=== PATIENT | male | born 1950 | race Caucasian/White ===

== ENCOUNTER 2019-02-11 09:14 | Day surgery (SDC) | payer MEDICARE, OTHER ==
[~2019-02-11] VITALS: Ht 172.7 cm; Wt 83.1 kg
[~2019-02-11 09:14] MED LIST: AMLO5 PO; ASPI325 PO; B Complex #11 EACH PO; B-121000 MC2 PO; BLOOD PRESSURE MED; CETI10 PO; CHOL10002 PO; Desyrel50 MG PO; HYDCHL25 PO; IBUP800 PO; KRILL OIL500 MG PO; LEVSOD150 PO; LEVSOD175 PO; LOSA50 PO; NITR.4SL SL; PREG50 PO; PREG75 PO; Prilosec Otc20 MG PO; SULTRIDS PO; TRAM50 PO; VERA240ER PO; VITAMIN B122500 MCG PO
== END 2019-02-11 11:30 | disposition home or self-care (01) ==
LOC: ORSCSDS 09:14
PROVIDERS: Internal Medicine Gastroenterology
PROC: 0DB88ZX Excision of Small Intestine, Via Natural or Artificial Opening Endoscopic, Diagnostic (ICD-10-PCS; principal; 2019-02-11 10:30)
PROC: 0DB58ZX Excision of Esophagus, Via Natural or Artificial Opening Endoscopic, Diagnostic (ICD-10-PCS; principal; 2019-02-11 10:30)
PROC: 0DB98ZX Excision of Duodenum, Via Natural or Artificial Opening Endoscopic, Diagnostic (ICD-10-PCS; principal; 2019-02-11 10:30)
PROC: 0D758ZZ Dilation of Esophagus, Via Natural or Artificial Opening Endoscopic (ICD-10-PCS; principal; 2019-02-11 10:30)
DX: R13.14 Dysphagia, pharyngoesophageal phase (principal); K22.70 Barrett's esophagus without dysplasia; K22.2 Esophageal obstruction; Z87.891 Personal history of nicotine dependence; I10 Essential (primary) hypertension; K21.9 Gastro-esophageal reflux disease without esophagitis; Z79.82 Long term (current) use of aspirin; Z79.899 Other long term (current) drug therapy
CPT/HCPCS: 88305; J2704; J7120

== ENCOUNTER 2020-05-01 19:11 | Observation (INO) | payer MEDICARE, OTHER ==
[~2020-05-01] VITALS: Ht 172.7 cm; Wt 81.8 kg
[2020-05-01 20:02] LABS: BASOPHILS ABSOLUTE AUTO 0.06 K/mm3 (0.00-0.23); BASOPHILS PERCENT AUTO 1 % (0-2); EOSINOPHILS ABSOLUTE AUTO 0.16 K/mm3 (0.00-0.68); EOSINOPHILS PERCENT AUTO 2 % (0-6); Hematocrit 46.1 % (37.0-53.0); Hemoglobin 14.8 g/dL (13.5-17.5); IMMATURE GRAN ABSOLUTE AUTO 0.04 K/mm3 (0.00-0.10); IMMATURE GRAN PERCENT AUTO 1 % (0-1); LYMPHOCYTES ABSOLUTE AUTO 1.91 K/mm3 (0.84-5.20); LYMPHOCYTES PERCENT AUTO 26 % (21-46); MONOCYTES ABSOLUTE AUTO 0.84 K/mm3 (0.16-1.47); MONOCYTES PERCENT AUTO 11 % (4-13); Mean Corpuscular HGB 28.9 pg (26.0-34.0); Mean Corpuscular HGB Conc 32.1 g/dL (31.5-36.5); Mean Corpuscular Volume 90 fL (80-100); Mean Platelet Volume 10.2 fL (9.1-12.4); NEUTROPHILS ABSOLUTE AUTO 4.46 K/mm3 (1.96-9.15); NEUTROPHILS PERCENT AUTO 60 % (41-73); Platelet Count 280 K/mm3 (150-400); RDW Standard Deviation 42.5 fL (35.1-46.3); Red Blood Cell Count 5.12 M/mm3 (4.30-5.90); White Blood Cell Count 7.47 K/mm3 (4.00-11.30)
[2020-05-01 20:15] LABS: Alanine Aminotransfer (ALT/SGP 28 U/L (12-78); Albumin, Blood 3.9 g/dL (3.4-5.0); Albumin/Globulin Ratio 0.9 (0.8-1.8); Alk Phos 98 U/L (50-136); Anion Gap 3 mmol/L (6-16); Aspartate Aminotrans (AST/SGOT 14 U/L (12-37); Bilirubin, Total 0.3 mg/dL (0.1-1.0); Blood Urea Nitrogen 24 mg/dL (8-24); Bun/Creatinine Ratio 24.8 (12.0-20.0); CO2, Blood 28 mmol/L (21-32); Calcium, Blood 10.6 mg/dL (8.5-10.1); Chloride, Blood 107 mmol/L (98-108); Creatinine, Blood 0.97 mg/dL (0.60-1.20); Globulin, Blood 4.2 g/dL (2.2-4.0); Glomerular Filtration Rate >60 (60-); Glucose, Blood 111 mg/dL (70-99); Potassium, Blood 4.1 mmol/L (3.5-5.5); Sodium, Blood 138 mmol/L (136-145); Total Protein, Blood 8.1 g/dL (6.4-8.2); Troponin I <0.015 ng/mL (0.000-0.040)
[2020-05-01] MEDS ORDERED: ASPI325 PO (21:58)
[2020-05-01] MEDS ORDERED: LOSA50 PO (21:59)
[2020-05-01] MEDS ORDERED: EUTHYROX175 MCG PO (21:59)
[2020-05-01] MEDS ORDERED: HYDCHL25 PO (22:00)
[2020-05-01] MEDS ORDERED: VERA80 PO (22:00)
[2020-05-01] MEDS ORDERED: OMEP20ER PO (22:01)
[2020-05-01] MEDS ORDERED: IBUP800 PO (22:01)
[2020-05-01] MEDS ORDERED: TRAZ50 PO (22:02)
[2020-05-01] MEDS ORDERED: ACET500 PO (22:02)
[2020-05-01] MEDS ORDERED: TRAM50 PO (22:02)
[2020-05-01] MEDS ORDERED: NITR.4SL SL (22:03)
[2020-05-01] MEDS ORDERED: KRILL OIL500 MG PO (22:04)
[2020-05-01] MEDS ORDERED: VITAMIN D5000 UNIT PO (22:04)
[2020-05-01] MEDS ORDERED: CETI5 (22:04)
[2020-05-01] MEDS ORDERED: Vitamin B Comple1 EA PO (22:05)
[2020-05-01] MEDS ORDERED: VITAMIN B125000 MC1 PO (22:05)
[2020-05-01] MEDS ORDERED: FLUT1DIS2 INH (22:07)
[2020-05-02] MEDS ORDERED: PREG75 PO (00:17)
--- NOTE | 2020-05-02 01:08 | NUR ---
NEW ADMIT ARRIVED @2330 VIA GURNEY TO RM 301, IND TRANSFERED SELF TO BED. PT REPORTED HE HAD 6/10 MID STERNUM CHEST PAIN @2300 IN ER & TOOK 1 OF HIS HOME NITRO THEN CHEST PAIN DECREASED TO 3/10. ASKED PT TO INFORM STAFF IF HE FELT ANY FURTHER CHEST PAIN SO WE CAN MONITOR & GIVE MEDS THAT HAVE BEEN ORDERED. WCTM.
[2020-05-02 05:01] LABS: BASOPHILS ABSOLUTE AUTO 0.08 K/mm3 (0.00-0.23); BASOPHILS PERCENT AUTO 1 % (0-2); EOSINOPHILS ABSOLUTE AUTO 0.16 K/mm3 (0.00-0.68); EOSINOPHILS PERCENT AUTO 2 % (0-6); Hematocrit 42.4 % (37.0-53.0); Hemoglobin 13.5 g/dL (13.5-17.5); IMMATURE GRAN ABSOLUTE AUTO 0.05 K/mm3 (0.00-0.10); IMMATURE GRAN PERCENT AUTO 1 % (0-1); LYMPHOCYTES ABSOLUTE AUTO 1.94 K/mm3 (0.84-5.20); LYMPHOCYTES PERCENT AUTO 22 % (21-46); MONOCYTES ABSOLUTE AUTO 0.97 K/mm3 (0.16-1.47); MONOCYTES PERCENT AUTO 11 % (4-13); Mean Corpuscular HGB 28.5 pg (26.0-34.0); Mean Corpuscular HGB Conc 31.8 g/dL (31.5-36.5); Mean Corpuscular Volume 90 fL (80-100); Mean Platelet Volume 10.4 fL (9.1-12.4); NEUTROPHILS ABSOLUTE AUTO 5.59 K/mm3 (1.96-9.15); NEUTROPHILS PERCENT AUTO 64 % (41-73); Platelet Count 239 K/mm3 (150-400); RDW Coefficient Variation 12.7 % (11.7-14.2); Red Blood Cell Count 4.74 M/mm3 (4.30-5.90); White Blood Cell Count 8.79 K/mm3 (4.00-11.30)
[2020-05-02 05:22] LABS: CPK Creatine Kinase 50 U/L (39-308); Troponin I <0.015 ng/mL (0.000-0.040)
--- NOTE | 2020-05-02 06:41 | NUR ---
SHIFT SUMMARY AOX4. VSS. TELE NSR @86. DENIES N/V, DYSPNEA, DIZZINESS, ROCHE. REPORTED 2-3/10 MID STERNUM CHEST PAIN ONCE HE CAME TO FLOOR LAST NIGHT, POST TAKING 1 TAB OF HIS OWN NITRO. HAS DENIED ANY FURTHER CP SINCE. NS RUNNING @75ML/HR. CALL LIGHT IN REACH.
[2020-05-02 12:31] LABS: CPK Creatine Kinase 41 U/L (39-308); Troponin I <0.015 ng/mL (0.000-0.040)
--- NOTE | 2020-05-02 17:25 | NUR ---
SUMMARY PT IS A/O X4, PLEASANT/COOPERATIVE AFFECT. UP INDEPENDANTLY. HE STATE MINIMAL CHEST PAIN/PRESSURE TODAY, 10/05. HE STATE HX FIBROMYALGIA PAIN, HAS REPORTED DISCOMFORT R/T TODAY, 02/02, HAVE GIVEN TRAMADOL FOR RELIEF, DR FIELDS ADD TYLENOL THIS AFTERNOON/PT REQUEST. TELE REPORT NSR 80'S TODAY, VSS. DR FIELDS ORDER CARDIAC STRESS TEST HOWEVER NUC MED UNABLE TO START TODAY, PT WILL BEGIN IN AM, NPO 4HRS PRIOR TO TEST. PT & INFORMED, VERBALIZE UNDERSTANDING. TROP HAS BEEN WNL.
--- NOTE | 2020-05-03 05:20 | NUR ---
SHIFT SUMMARY NO ACUTE CHANGES THIS SHIFT. AOX4. VSS. TELE NSR c PVCS & 1ST DEGREE HB @78. PT DENIES ANY CP T/O NIGHT. ALSO DENIES N/V, DYSPNEA. REPORTS HE ALWAYS HAS 4/10 PAIN ALL OVER BODY FROM FIBROMYALGIA, DENIES NEED FOR MEDICATION. PT HAS BEEN NPO EXCEPT SIPS OF WATER c AM MEDS FOR PLANNED STRESS TEST. CALL LIGHT IN REACH. TM.
--- NOTE | 2020-05-03 17:55 | NUR ---
SUMMARY PT WAS ABLE TO HAVE BF THIS AM, NPO AFTER FOR 1ST PORTION STRESS TEST. NUC MED UP FOR INJECTION APPROX 1330, PT DOWN FOR RADIOLOGY 1430. HE WILL HAVE 2ND PORTION STRESS TEST TOMORROW APPROX 1200, HE MAY HAVE BF IN AM THEN NPO X WATER. HE IS A/O X4, PLEASANT/COOPERATIVE. HE HAS HX FIBOMYALGIA/JOINT PAIN, GIVEN HIS ROUTINE HOME MEDS TRAMADOL w 1000G TYLENOL X2 TODAY FOR RELIEF/CONTROL. HX ABD/ESOPHAGEAL SPASMS, PT STATE MINIMAL DISCOMFORT R/T, SCHEDULED PRILOSEC CONTINUES. STATE NO CHEST PAIN T/O DAY. VSS.
--- NOTE | 2020-05-04 04:02 | NUR ---
SHIFT SUMMARY ASSUMED CARE OF PT AT 1900. PT IS A/OX4, DENIES N/T IN EXTREMITES. HEART SOUNDS REGULAR, DENIES CP, TELE SHOWS SINUS W// FIRST DEGREE BLOCK @ 75. LUNG SOUNDS CLEAR, DENIES SOB. PT IS INDEPENDENT IN ROOM. PT HAS AN UNDERSTANDING FROM HIS DOCTOR THAT HE IS TO BE NPO AFTER BREAKFAST FOR HIS STRESS TEST IN THE MORNING. NO ACUTE EVENTS DURING THE NIGHT. PT SLEPT ALL NIGHT. CALL LIGHT IN REACH, BED IN LOWEST POSTION.
[2020-05-04] MEDS ORDERED: ZYRTEC10 M1 PO (19:14)
--- NOTE | 2020-05-04 19:41 | NUR ---
DISCHARGE INSTRUCTIONS COMPLETED AND DISCUSSED WITH PT EXPRESSING UNDERSTANDING. NO NEW SCRIPTS. TO [facility] VIA W/C WITH IN ATTENDANCE.
== END 2020-05-04 19:49 | disposition home or self-care (01) ==
LOC: ER 19:11 → MEDS 19:12
PROVIDERS: Emergency Medicine; Physician Assistant; ADMIT Internal Medicine
DX: R07.89 Other chest pain (principal); I10 Essential (primary) hypertension; K21.9 Gastro-esophageal reflux disease without esophagitis; K22.70 Barrett's esophagus without dysplasia; E78.5 Hyperlipidemia, unspecified; E03.9 Hypothyroidism, unspecified; J44.9 Chronic obstructive pulmonary disease, unspecified; Z87.891 Personal history of nicotine dependence; F10.21 Alcohol dependence, in remission; Z98.890 Other specified postprocedural states; G89.4 Chronic pain syndrome; Z86.79 Personal history of other diseases of the circulatory system; I44.0 Atrioventricular block, first degree; Z79.899 Other long term (current) drug therapy; Z79.82 Long term (current) use of aspirin; Z88.5 Allergy status to narcotic agent; Z88.1 Allergy status to other antibiotic agents; Z88.8 Allergy status to other drugs, medicaments and biological substances
CPT/HCPCS: 36415; 71046; 78452; 80053; 82550; 83690; 84484; 85025; 93005; 93010; 93017; 94640; 94760; 96361; 96372; 96374; 99285-25; A9270-GY; A9500; G0378; J0360; J0706; J1650; J2785; J7030

== ENCOUNTER 2020-05-24 09:30 | Day surgery (SDC) | payer MEDICARE, OTHER ==
[~2020-05-24] VITALS: Ht 170.2 cm; Wt 83.6 kg
[~2020-05-24 09:30] MED LIST changes: +ACET500 PO; +Aspir 8181 MG PO; +CETI5; +EUTHYROX175 MCG PO; +FLUT1DIS2 INH; +OMEP20ER PO; +TRAZ50 PO; +VERA80 PO; +VITAMIN B125000 MC1 PO; +VITAMIN D5000 UNIT PO; +Vitamin B Comple1 EA PO; +ZYRTEC10 M1 PO
[2020-05-24] MEDS ORDERED: TRAZ50 PO (10:05)
[2020-05-24] MEDS ORDERED: UBID10 PO (10:07)
[2020-05-24] MEDS ORDERED: CLOP75 PO (10:47)
--- NOTE | 2020-05-24 14:40 | NUR ---
1335 PATIENT RETURNS FROM THE [facility] WITH RIGHT RADIAL TR BAND IN PLACE AT 1315. PATIENT SITTING UP IN A RECLINER AND MONITOR IN PLACE. CALL LIGHT IN REACH. VVS. NO PAIN NOTED. NO BLEEDING NOTED. AT THE BEDSIDE.
--- NOTE | 2020-05-24 15:14 | NUR ---
1515 BEGAN RELEASING AIR FROM THE TR BAND. NO BLEEDING NOTED.
--- NOTE | 2020-05-24 16:11 | NUR ---
1610 TR BAND FLAT SINCE 152, NO BLEEDING NOTED. TR BAND REMOVED AND SITE CLEANED. CLOTH DOT APPLIED. WHITE BORAD REAPPLIED. PATIENT UP TO THE RESTROOM AND THEN DRESSED SELF. PIV REMOVED AND PRESSURE DRESSING APPLIED. REVIEWED ALL DISCHARGE INSTRUCTIONS. ALL QUESTIONS ANSWERED.
--- NOTE | 2020-05-24 16:23 | NUR ---
1625 PATIENT DISCHARGED VIA WHEEL CHAIR TO DRIVING. WILL RETURN IN TWO WEEKS FOR INTERVENTIONAL PROCEDURE.
== END 2020-05-24 16:15 | disposition home or self-care (01) ==
LOC: MHTC 09:30
PROC: B201YZZ Plain Radiography of Multiple Coronary Arteries using Other Contrast (ICD-10-PCS; principal; 2020-05-24)
PROC: 4A023N7 Measurement of Cardiac Sampling and Pressure, Left Heart, Percutaneous Approach (ICD-10-PCS; principal; 2020-05-24)
DX: I25.10 Atherosclerotic heart disease of native coronary artery without angina pectoris (principal); I10 Essential (primary) hypertension; E78.5 Hyperlipidemia, unspecified; Z88.5 Allergy status to narcotic agent; Z88.1 Allergy status to other antibiotic agents; Z88.8 Allergy status to other drugs, medicaments and biological substances; Z87.891 Personal history of nicotine dependence; Z79.82 Long term (current) use of aspirin; Z79.899 Other long term (current) drug therapy
CPT/HCPCS: 76937; 93458; 99152; 99153; A9270-GY; C1769; C1894; J1644; J2250; J3010; J7030; J7050; Q9967

== ENCOUNTER 2020-06-06 07:31 | Day surgery (SDC) | payer MEDICARE, OTHER ==
[~2020-06-06] VITALS: Ht 172.7 cm; Wt 83.5 kg
[~2020-06-06 07:31] MED LIST changes: +CLOP75 PO; +UBID10 PO
[2020-06-06] MEDS ORDERED: Aspir 8181 MG PO (07:56)
--- NOTE | 2020-06-06 15:03 | NUR ---
SHEATH BEING PULLED PER [employer].
--- NOTE | 2020-06-06 17:23 | NUR ---
PT WAS ADMITTED TO ICU AT 1540 WITH A/O. R GROIN SITE SL BUFFY BUT NO HARD HEMATOMA. MOD BROAD DIRECT PRESSURE HELD FOR 15-20 MINUTES AND SITE IIMPORVED. SL TISSUE BUFFYNESS SLOWLY RETURNED W/O ANY HEMTOMA HARDNESS NOTED. PT COACHED RE CARE OF SITE , LEG MOVEMENT, RAISING OF THE HEAD. PT ABLE TO ADJUST SELF IN BED AND IS COOPERATIVE WITH R GROIN CARE. PT DISTAL PULSES AND DISTAL SATS NORMAL. VSS NOTED WITH BP SLOWLY RAISING SENCE ADMIT TO ICU. IV IS SL IN L AC SITE.
--- NOTE | 2020-06-06 18:49 | NUR ---
PULSES AND R GROIN SITE REMAIN STABLE. PT A/O. VISITING.
--- NOTE | 2020-06-06 19:15 | NUR ---
ASSUMED CARE OF PT, BEDSIDE REPORT RECEIVED. PT IS RESTING QUIETLY SUPINE IN BED WITH SPOUSE AT BEDSIDE. 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 PT VERBALIZES UNDERSTANDING OF ACTIVITY RESTRICTIONS AT THIS TIME WELL PLAN TO ALLOW INCREASED MOVEMENT AT 2200. RIGHT GROIN SITE IS REVIEWED WITH OFFGOING RN, SITE SOFT, NO VISIBLE BLEEDING/BRUISING, DRESSING IS CDI AT THIS TIME, SYMPTOMS/SIGNS OF BLEEDING FROM ACCESS SITE ARE REVIEWED WITH PT AND SPOUSE AND UNDERSTANDING IS VERBALIZED. HRR, SINUS RHYTHM IS NOTED ON MONITOR, RATE 70S AT THIS TIME, PRESSURES MAINTAINING 140-150S SYSTOLIC AT THIS TIME, PULSES ARE FULL, SKIN PWD, NO EDEMA IS NOTED. LUNGS ARE CLEAR THROUGHOUT, PT ADMITS TO SOME SHORTNESS OF BREATH ONGOING THROUGHOUT DAY TODAY BUT DENIES NEED FOR INTERVENTION AT THIS TIME, LUNGS ARE CLEAR THROUGHOUT AND SATS ARE MAINTAINING ON ROOM AIR, PT IS SPEAKING IN FULL SENTENCES, LAUGHING AND JOKING WITH STAFF AT BEDSIDE. ACTIVE BOWEL TONES ARE NOTED, ABD SOFT, NONTENDER TO PALP. PT VOIDS CLEAR YELLOW URINE WITHOUT DIFFICULTY USING URINAL. IV ACCESS IS NOTED TO LEFT FOREARM, DISCUSSED PROTOCOL FOR 2ND IV ACCESS SITE WELL REASON FOR SECOND IV ACCESS. PT DECLINES TO HAVE 2ND IV AT THIS TIME.
[2020-06-07 03:24] LABS: BASOPHILS ABSOLUTE AUTO 0.05 K/mm3 (0.00-0.23); BASOPHILS PERCENT AUTO 1 % (0-2); EOSINOPHILS ABSOLUTE AUTO 0.17 K/mm3 (0.00-0.68); EOSINOPHILS PERCENT AUTO 2 % (0-6); Hematocrit 37.3 % (37.0-53.0); IMMATURE GRAN ABSOLUTE AUTO 0.04 K/mm3 (0.00-0.10); IMMATURE GRAN PERCENT AUTO 1 % (0-1); LYMPHOCYTES ABSOLUTE AUTO 1.32 K/mm3 (0.84-5.20); LYMPHOCYTES PERCENT AUTO 16 % (21-46); MONOCYTES ABSOLUTE AUTO 1.01 K/mm3 (0.16-1.47); MONOCYTES PERCENT AUTO 12 % (4-13); Mean Corpuscular HGB Conc 32.2 g/dL (31.5-36.5); Mean Corpuscular Volume 90 fL (80-100); Mean Platelet Volume 10.4 fL (9.1-12.4); NEUTROPHILS PERCENT AUTO 69 % (41-73); Platelet Count 204 K/mm3 (150-400); RDW Coefficient Variation 13.1 % (11.7-14.2); RDW Standard Deviation 42.8 fL (35.1-46.3); Red Blood Cell Count 4.14 M/mm3 (4.30-5.90); White Blood Cell Count 8.39 K/mm3 (4.00-11.30)
[2020-06-07 03:46] LABS: Anion Gap 6 mmol/L (6-16); Blood Urea Nitrogen 26 mg/dL (8-24); Bun/Creatinine Ratio 23.4 (12.0-20.0); CO2, Blood 26 mmol/L (21-32); Calcium, Blood 9.6 mg/dL (8.5-10.1); Chloride, Blood 109 mmol/L (98-108); Creatinine, Blood 1.11 mg/dL (0.60-1.20); Glomerular Filtration Rate >60 (60-); Glucose, Blood 110 mg/dL (70-99); Potassium, Blood 4.2 mmol/L (3.5-5.5); Sodium, Blood 141 mmol/L (136-145)
--- NOTE | 2020-06-07 07:50 | NUR ---
PT RESTS QUIETLY THROUGHOUT SHIFT, IS NOTED TO BE FREQUENTLY AWAKE. HE DOES COMPLAIN OF PAIN FROM L-4 UP TO THORACIC SPINE WHICH HE STATES IS HIS BASELINE AND DOES NOT EVER GET BELOW 4/10 AT HOME. DENIES CP/PRESSURE THROUGHOUT SHIFT, DENIES NAUSEA, DOES STATE THAT HE HAS A SLEEP DISORDER AND IS FREQUENTLY AWAKE AT BASELINE. RIGHT GROIN SITE REMAINS STABLE THROUGHOUT SHIFT, SINUS RHYTHM CONTINUES, PT IS NOTED BRADYCARDIC TO THE 50S WITH PERIODS OF SLEEP AT WHICH TIME HIS PRESSURES ARE NOTED TO BE NEAR 100 SYSTOLIC BUT IMPROVE TO 110S WITH WAKEFULNESS. HE HAS GOOD URINE OUTPUT WELL GOOD PO FLUID INTAKE. ASSESSMENT REMAINS UNCHANGED THROUGHOUT NOC.
[2020-06-07] MEDS ORDERED: PANT20 PO (09:11)
--- NOTE | 2020-06-07 10:56 | NUR ---
LATE AM ENTRY... PT WAS VERY A/O WITH A GOOD AWARENESS OF MEDICAL STATUS AND NEEDED CARE FOR F/U AT HOME. PT DENEIS PAIN, SOB, CHEST PAIN, OR R GROIN STATUS CHANGES. R GROIN IS STABLE AND NO HEMATOMA NOTED, WITH GOOD DISTAL PULSES. PT WAS UP TO WALK W/O CHANGES IN R GROIN STATUS, NO SOB, CP. PT IN TO SEE PT AND IV L AC WAS D/C AND CATH INTACT. PT TO [place] ENTRANCE AT 0940 PER W/C AND PT IS ASYMTOMATIC OF ANY DISTRESS. PT DISCHARGE PER JENNIFER BRODY.
== END 2020-06-07 09:30 | disposition home or self-care (01) ==
LOC: MHTC 07:31 → ICUW 15:30 → MHTC 06-07 09:30
PROVIDERS: Internal Medicine Interventional Cardiology
PROC: B201YZZ Plain Radiography of Multiple Coronary Arteries using Other Contrast (ICD-10-PCS; principal; 2020-06-06)
PROC: 4A023N7 Measurement of Cardiac Sampling and Pressure, Left Heart, Percutaneous Approach (ICD-10-PCS; principal; 2020-06-06)
DX: I25.110 Atherosclerotic heart disease of native coronary artery with unstable angina pectoris (principal); E78.00 Pure hypercholesterolemia, unspecified; E78.5 Hyperlipidemia, unspecified; I12.9 Hypertensive chronic kidney disease with stage 1 through stage 4 chronic kidney disease, or unspecified chronic kidney disease; E11.22 Type 2 diabetes mellitus with diabetic chronic kidney disease; N18.9 Chronic kidney disease, unspecified; J44.9 Chronic obstructive pulmonary disease, unspecified; Z79.82 Long term (current) use of aspirin; Z88.5 Allergy status to narcotic agent; Z87.891 Personal history of nicotine dependence; Z88.1 Allergy status to other antibiotic agents; Z88.8 Allergy status to other drugs, medicaments and biological substances; Z79.01 Long term (current) use of anticoagulants; Z79.899 Other long term (current) drug therapy; Z79.02 Long term (current) use of antithrombotics/antiplatelets
CPT/HCPCS: 36415; 76937; 80048; 85025; 85347; 92924; 92978; 93005; 93010; 93454; 94640; 99152; 99153; A9270; A9270-GY; C1724; C1725; C1753; C1769; C1874; C1887; C1894; C9113; C9600; C9602; G0278; J1644; J2250; J3010; J7030; J7040; Q9967

== ENCOUNTER 2020-11-17 06:04 | Day surgery (SDC) | payer MEDICARE, OTHER ==
[~2020-11-17] VITALS: Ht 172.7 cm; Wt 79.0 kg
[~2020-11-17 06:04] MED LIST changes: +FLUT1DIS2; +GLUCHON PO; +Isosorbide Mono30 MG PO; +LIVALO2 MG PO; +METO50ER PO; +PANT20 PO; +TRI MIX 150 MG IC
[2020-11-17] MEDS ORDERED: ATOR40TA PO (07:25)
--- NOTE | 2020-11-17 10:10 | NUR ---
PT TO RECOVERY ROOM POST PROCEDURE. PT AWAKE AND CONVERSING APPROPRIATELY; DENIES PAIN POST PROCEDURE. MONITOR SB/SR 50-60'S, B/P 134/62,, AFEBRILE, SPO2 91-95% RA. L GROIN SITE NO SWELLING/HEMATOMA, TEGADERM DRSG INTACT; ANGIO SEAL DEPLOYED, 2+ PULSES BLE. PT TAKING BREAKFAST AND SIPS OF FLUID WITHOUT ISSUE.
--- NOTE | 2020-11-17 12:15 | NUR ---
PT HOB ELEVATED, L GROIN SITE UNCHANGED. PT DENIES PAIN OR DISCOMFORT.
--- NOTE | 2020-11-17 12:45 | NUR ---
PT AMB TO BATHROOM, GAIT STEADY; SITE UNCHANGED WITH ACTIVITY.
--- NOTE | 2020-11-17 13:03 | NUR ---
PT DRESSED SELF WITHOUT ISSUE, SITE UNCHANGED; IV REMOVED-CANNULA INTACT. PT RECEIVED DISCHARGE INSTRUCTIONS, MED LIST AND AFTER CARE INSTRUCTIONS; VERBALIZED GOOD UNDERSTANDING. PT LEFT FACILITY VIA W/C, CONDITION STABLE.
[2021-03-07] MEDS ORDERED: FERSU300 PO (17:13)
== END 2020-11-17 13:03 | disposition home or self-care (01) ==
LOC: MHTC 06:04
DX: E11.51 Type 2 diabetes mellitus with diabetic peripheral angiopathy without gangrene (principal); I70.213 Atherosclerosis of native arteries of extremities with intermittent claudication, bilateral legs; K55.1 Chronic vascular disorders of intestine; E78.2 Mixed hyperlipidemia; I10 Essential (primary) hypertension; I25.10 Atherosclerotic heart disease of native coronary artery without angina pectoris; K21.9 Gastro-esophageal reflux disease without esophagitis; J44.9 Chronic obstructive pulmonary disease, unspecified; F10.21 Alcohol dependence, in remission; K22.4 Dyskinesia of esophagus; M79.7 Fibromyalgia; E03.9 Hypothyroidism, unspecified; M19.90 Unspecified osteoarthritis, unspecified site; E55.9 Vitamin D deficiency, unspecified; Z87.891 Personal history of nicotine dependence; Z85.820 Personal history of malignant melanoma of skin; Z98.1 Arthrodesis status; Z95.5 Presence of coronary angioplasty implant and graft; Z88.1 Allergy status to other antibiotic agents; Z88.8 Allergy status to other drugs, medicaments and biological substances; Z88.5 Allergy status to narcotic agent; Z79.82 Long term (current) use of aspirin; Z79.02 Long term (current) use of antithrombotics/antiplatelets
CPT/HCPCS: 37221; 37224; 75625; 75716; 75774; 93005; 93010; 99152; 99153; C1725; C1760; C1769; C1876; C1887; C1894; J1644; J2250; J3010; J7030; J7050; Q9967

== ENCOUNTER 2021-03-05 10:19 | Inpatient (IN) | payer MEDICARE, OTHER | END 2021-03-07 17:39 | disposition home or self-care (01) | DRG 812 | LOC: ER 10:19 → MEDS 10:20 → PCU 03-06 21:10 | PROVIDERS: ADMIT Internal Medicine | PROC: 30233N1 Transfusion of Nonautologous Red Blood Cells into Peripheral Vein, Percutaneous Approach (ICD-10-PCS; 2021-03-05) | PROC: 0DJ08ZZ Inspection of Upper Intestinal Tract, Via Natural or Artificial Opening Endoscopic (ICD-10-PCS; principal; 2021-03-07) | DX: D64.9 Anemia, unspecified (principal); K92.2 Gastrointestinal hemorrhage, unspecified; I48.91 Unspecified atrial fibrillation; Z20.822 Contact with and (suspected) exposure to COVID-19; R13.10 Dysphagia, unspecified; E78.5 Hyperlipidemia, unspecified; E03.9 Hypothyroidism, unspecified; E11.22 Type 2 diabetes mellitus with diabetic chronic kidney disease; I12.9 Hypertensive chronic kidney disease with stage 1 through stage 4 chronic kidney disease, or unspecified chronic kidney disease; N18.30 Chronic kidney disease, stage 3 unspecified; I25.10 Atherosclerotic heart disease of native coronary artery without angina pectoris; E11.51 Type 2 diabetes mellitus with diabetic peripheral angiopathy without gangrene; E11.40 Type 2 diabetes mellitus with diabetic neuropathy, unspecified; M79.7 Fibromyalgia; J44.9 Chronic obstructive pulmonary disease, unspecified; K31.89 Other diseases of stomach and duodenum; Z87.891 Personal history of nicotine dependence; Z95.5 Presence of coronary angioplasty implant and graft; Z95.820 Peripheral vascular angioplasty status with implants and grafts; Z88.8 Allergy status to other drugs, medicaments and biological substances; Z88.5 Allergy status to narcotic agent; Z88.1 Allergy status to other antibiotic agents; Z79.899 Other long term (current) drug therapy; Z79.02 Long term (current) use of antithrombotics/antiplatelets; Z79.82 Long term (current) use of aspirin; Z79.891 Long term (current) use of opiate analgesic; Z79.51 Long term (current) use of inhaled steroids ==

== ENCOUNTER 2021-03-28 14:43 | Emergency (ER) | payer MEDICARE, OTHER ==
[~2021-03-28] VITALS: Ht 172.7 cm; Wt 71.2 kg
[~2021-03-28 14:43] MED LIST changes: +ATOR40TA PO; +FERSU300 PO
[2021-03-28 16:53] LABS: Hematocrit 34.6 % (37.0-53.0); Hemoglobin 10.5 g/dL (13.5-17.5); Mean Corpuscular HGB 25.4 pg (26.0-34.0); Mean Corpuscular HGB Conc 30.3 g/dL (31.5-36.5); Mean Corpuscular Volume 84 fL (80-100); Mean Platelet Volume 10.6 fL (9.1-12.4); Platelet Count 295 K/mm3 (150-400); RDW Coefficient Variation 20.6 % (11.7-14.2); RDW Standard Deviation 62.4 fL (35.1-46.3); Red Blood Cell Count 4.13 M/mm3 (4.30-5.90); White Blood Cell Count 5.76 K/mm3 (4.00-11.30)
[2021-03-28 17:00] LABS: Alanine Aminotransfer (ALT/SGP 15 U/L (12-78); Albumin, Blood 3.1 g/dL (3.4-5.0); Albumin/Globulin Ratio 0.7 (0.8-1.8); Alk Phos 69 U/L (50-136); Anion Gap 4 mmol/L (6-16); Aspartate Aminotrans (AST/SGOT 18 U/L (12-37); Bilirubin, Total 0.3 mg/dL (0.1-1.0); Blood Urea Nitrogen 22 mg/dL (8-24); Bun/Creatinine Ratio 21.4 (12.0-20.0); CO2, Blood 26 mmol/L (21-32); Calcium, Blood 9.5 mg/dL (8.5-10.1); Chloride, Blood 105 mmol/L (98-108); Creatinine, Blood 1.03 mg/dL (0.60-1.20); Globulin, Blood 4.2 g/dL (2.2-4.0); Glomerular Filtration Rate >60 (60-); Glucose, Blood 107 mg/dL (70-99); Sodium, Blood 135 mmol/L (136-145); Total Protein, Blood 7.3 g/dL (6.4-8.2)
[2021-03-28 17:24] LABS: BAND PERCENT MAN 1 % (0-8); BASOPHILS PERCENT MAN 0 % (0-2); EOSINOPHILS PERCENT MAN 0 % (0-6); LYMPHOCYTES % ATYPICAL MANUAL 3 % (0-0); LYMPHOCYTES ABSOLUTE MAN 0.46 K/mm3 (0.84-5.20); LYMPHOCYTES PERCENT MAN 5 % (21-46); MONOCYTES ABSOLUTE MAN 0.63 K/mm3 (0.16-1.47); MONOCYTES PERCENT MAN 11 % (4-13); NEUTROPHILS ABSOLUTE MAN 4.66 K/mm3 (1.96-9.15); SEG NEUTROPHILS PERCENT MAN 80 % (41-73); TOTAL CELLS COUNTED 100
== END 2021-03-28 19:14 | disposition home or self-care (01) ==
LOC: ER 14:43
PROVIDERS: Physician Assistant
DX: U07.1 COVID-19 (principal); D64.9 Anemia, unspecified; Z88.8 Allergy status to other drugs, medicaments and biological substances; Z88.1 Allergy status to other antibiotic agents; Z88.5 Allergy status to narcotic agent; Z79.899 Other long term (current) drug therapy; Z79.890 Hormone replacement therapy; Z79.02 Long term (current) use of antithrombotics/antiplatelets; Z79.82 Long term (current) use of aspirin; Z87.891 Personal history of nicotine dependence
CPT/HCPCS: 36415; 71045; 80053; 85025; 93005; 93010; 99284-25

== ENCOUNTER → 2021-06-27 | Outpatient (CLI) | payer MEDICARE, OTHER ==
[2021-07-05 10:41] LABS: Stool Occult Bld Immuno 1 Negative (NEGATIVE)
== END ==
LOC: LAB SHORT 20:20
PROVIDERS: Internal Medicine Gastroenterology
DX: Z86.010 Personal history of colon polyps (principal); Z88.1 Allergy status to other antibiotic agents; Z88.5 Allergy status to narcotic agent; Z88.8 Allergy status to other drugs, medicaments and biological substances
CPT/HCPCS: 82274

== ENCOUNTER 2021-07-07 10:30 | Day surgery (SDC) | payer MEDICARE, OTHER ==
[~2021-07-07] VITALS: Ht 172.7 cm; Wt 76.9 kg
== END 2021-07-07 13:25 | disposition home or self-care (01) ==
LOC: ORSCSDS 10:30
DX: D64.9 Anemia, unspecified (principal); K22.2 Esophageal obstruction; Z87.891 Personal history of nicotine dependence; Z79.01 Long term (current) use of anticoagulants; Z79.899 Other long term (current) drug therapy
CPT/HCPCS: 82947; J2704; J7120

== ENCOUNTER → 2021-08-16 | Outpatient (CLI) | payer MEDICARE, OTHER ==
[2021-08-17 09:45] LABS: Stool Occult Bld Immuno 1 Negative (NEGATIVE)
== END | disposition home or self-care (01) ==
LOC: LAB SHORT 09:00 → LAB 09:00
PROVIDERS: Internal Medicine Gastroenterology
DX: D64.9 Anemia, unspecified (principal)
CPT/HCPCS: 82274

== ENCOUNTER 2021-08-30 09:01 | Day surgery (SDC) | payer MEDICARE, OTHER ==
[~2021-08-30] VITALS: Ht 172.7 cm; Wt 76.3 kg
--- NOTE | 2021-08-30 12:54 | NUR ---
08/30/21 1254 Justine Muñoz LATE ENTRY: PT HYPOTENSIVE IN PROCEDURE, (SEE MED ADMINISTRATION FORM) 12.5MG IV EPHEDRINE GIVEN ORDERED BY MD W[place] AND IVF BAG OPEN. SEDATION HELD. MD IN SIGMOID COLON, NO MORE SEDATION WAS NEEDED TO COMPLETE PROCEDURE. BP 123/75 HR 76 RR 16 SATS 96% ON ROOM AIR. PT STABLE IN RECOVERY AND DRINKING COFFEE.
== END 2021-08-30 11:13 | disposition home or self-care (01) ==
LOC: ORSCSDS 09:01
PROVIDERS: Internal Medicine Gastroenterology
PROC: 0DBP8ZX Excision of Rectum, Via Natural or Artificial Opening Endoscopic, Diagnostic (ICD-10-PCS; principal; 2021-08-30 10:15)
DX: D64.9 Anemia, unspecified (principal); Z86.010 Personal history of colon polyps; K57.30 Diverticulosis of large intestine without perforation or abscess without bleeding; K62.1 Rectal polyp; Z79.899 Other long term (current) drug therapy
CPT/HCPCS: 88305; J2704; J7120

== ENCOUNTER → 2021-09-06 | Outpatient (CLI) | payer MEDICARE, OTHER ==
[~2021-09-06] MED LIST changes: +HYDROCORTISON28.4 G3 TOP; +PREG150 PO
[2021-09-09 17:08] LABS: COTININE Negative ng/mL (Cutoff=300)
== END | disposition home or self-care (01) ==
LOC: LAB SHORT 09:30
PROVIDERS: Orthopaedic Surgery
DX: Z01.812 Encounter for preprocedural laboratory examination (principal)

== ENCOUNTER 2022-01-24 10:58 | Day surgery (SDC) | payer MEDICARE, OTHER ==
[~2022-01-24] VITALS: Ht 172.7 cm; Wt 79.5 kg
[~2022-01-24 10:58] MED LIST changes: +KETO15TC TOP
--- NOTE | 2022-01-24 13:02 | NUR ---
Ambulatory in Day Surgery History, Chart, Medications and Allergies reviewed before start of procedure. Lungs clear T/O to Auscultation. Pre-Op teaching done. Pt verbalizes understanding. Patient confirms NPO status and agrees with scheduled surgery.
--- NOTE | 2022-01-24 17:37 | NUR ---
PATIENT CAME BACK FROM PACU TODAY 01/24/22 AT 1725. POD 0 RIGHT KNEE PATIENT IS A&OX4. HE IS ON 2L NC OF OXYGEN WITH >90% OXYGEN SATS. PATIENT HAD A SPINAL DURING THE SURGERY AND REPORTS NUMBNESS FROM THE KNEES DOWN BUT CAN MOVE FINGERS AND TOES WHEN ASKED. RIGHT KNEE HAS GEOVANNA WRAP THAT IS C/D/I. PEDAL PULSES ARE STRONG. SCD'S IN PLACE. PATIENT DENIES PAIN AT THIS TIME DUE TO SPINAL. PATIENT IS TOLERATING PO INTAKE. IS AT BEDSIDE. CALL LIGHT WITHIN REACH. THE PLAN IS TO WORK WITH PHYSICAL THERAPY TOMORROW AND TO HAVE PAIN MANAGED.
--- NOTE | 2022-01-25 04:10 | NUR ---
SUMMARY PT N/T HAS RESOLVED AND HAS BEEN ABLE TO VOID. PT HAS BEEN AMBULATORY VIA GB AND FWW. PT PAIN HAS BEEN MANAGED WELL. PT REPORTS CHRONIC INSOMNIA. PT HAS BEEN RESTING COMFORTABLY. PT CURRENTLY AWAKE AND IN NO DISTRESS. CALL LIGHT IN REACH.
[2022-01-25 05:29] LABS: BASOPHILS ABSOLUTE AUTO 0.01 K/mm3 (0.00-0.23); BASOPHILS PERCENT AUTO 0 % (0-2); EOSINOPHILS PERCENT AUTO 0 % (0-6); Hematocrit 39.9 % (37.0-53.0); IMMATURE GRAN ABSOLUTE AUTO 0.05 K/mm3 (0.00-0.10); IMMATURE GRAN PERCENT AUTO 0 % (0-1); LYMPHOCYTES ABSOLUTE AUTO 0.91 K/mm3 (0.84-5.20); LYMPHOCYTES PERCENT AUTO 6 % (21-46); MONOCYTES ABSOLUTE AUTO 1.19 K/mm3 (0.16-1.47); MONOCYTES PERCENT AUTO 8 % (4-13); Mean Corpuscular HGB 28.8 pg (26.0-34.0); Mean Corpuscular HGB Conc 32.6 g/dL (31.5-36.5); Mean Corpuscular Volume 89 fL (80-100); Mean Platelet Volume 10.7 fL (9.1-12.4); NEUTROPHILS ABSOLUTE AUTO 12.31 K/mm3 (1.96-9.15); NEUTROPHILS PERCENT AUTO 85 % (41-73); Platelet Count 193 K/mm3 (150-400); RDW Coefficient Variation 13.2 % (11.7-14.2); RDW Standard Deviation 43.5 fL (35.1-46.3); Red Blood Cell Count 4.51 M/mm3 (4.30-5.90); White Blood Cell Count 14.47 K/mm3 (4.00-11.30)
[2022-01-25 05:39] LABS: Bun/Creatinine Ratio 19.2 (12.0-20.0); Calcium, Blood 9.5 mg/dL (8.5-10.1); Creatinine, Blood 1.2 mg/dL (0.60-1.20); Potassium, Blood 4.4 mmol/L (3.5-5.5)
[2022-01-25] MEDS ORDERED: SULTRIDS PO (08:34)
[2022-01-25] MEDS ORDERED: OXAYDO5 M1 PO (08:35)
[2022-01-25] MEDS ORDERED: PROM25 PO (09:14)
--- NOTE | 2022-01-25 10:13 | NUR ---
1009PT VOIDING, JORGE L PO DIET WITHOUT NAUSEA, AMBULATING WIH WALKER AND GAIT BELT. PT IS IN AGREEMENT WITH PLAN FOR DISCHARGE AND VERBALIZES UNDERSTANDING OF DISCHARGE INSTRUCTIONS. PT DISCHARGED TO HOME WITH HIS
== END 2022-01-25 10:09 | disposition home or self-care (01) ==
LOC: ORSCMMR 10:58 → SURS 17:17 → ORSCMMR 01-25 10:09
PROVIDERS: Orthopaedic Surgery
PROC: 8E0YXBZ Computer Assisted Procedure of Lower Extremity (ICD-10-PCS; principal; 2022-01-24 13:30)
PROC: 0SRC0J9 Replacement of Right Knee Joint with Synthetic Substitute, Cemented, Open Approach (ICD-10-PCS; principal; 2022-01-24 13:30)
DX: M17.11 Unilateral primary osteoarthritis, right knee (principal); M17.0 Bilateral primary osteoarthritis of knee; Z87.891 Personal history of nicotine dependence; I10 Essential (primary) hypertension; E78.00 Pure hypercholesterolemia, unspecified; E03.9 Hypothyroidism, unspecified; J44.9 Chronic obstructive pulmonary disease, unspecified; M79.7 Fibromyalgia; F32.A Depression, unspecified; Z79.899 Other long term (current) drug therapy; Z79.02 Long term (current) use of antithrombotics/antiplatelets
CPT/HCPCS: 36415; 73560-RT; 80048; 83735; 85025; 97110; 97161; 97530; A9270; C1713; C1776; J0171; J0690; J0735; J1100; J1170; J1885; J2250; J2370; J2405; J2704; J2795; J3010; J7120

== ENCOUNTER 2023-05-27 09:53 | Emergency (ER) | payer MEDICARE, BC ==
[~2023-05-27] VITALS: Ht 172.7 cm; Wt 81.2 kg
[~2023-05-27 09:53] MED LIST changes: +OXAYDO5 M1 PO; +PROM25 PO
[2023-05-27 10:28] LABS: BASOPHILS ABSOLUTE AUTO 0.07 K/mm3 (0.00-0.23); BASOPHILS PERCENT AUTO 1 % (0-2); EOSINOPHILS ABSOLUTE AUTO 0.14 K/mm3 (0.00-0.68); EOSINOPHILS PERCENT AUTO 2 % (0-6); Hematocrit 44.8 % (37.0-53.0); Hemoglobin 14.7 g/dL (13.5-17.5); IMMATURE GRAN ABSOLUTE AUTO 0.06 K/mm3 (0.00-0.10); IMMATURE GRAN PERCENT AUTO 1 % (0-1); LYMPHOCYTES ABSOLUTE AUTO 1.21 K/mm3 (0.84-5.20); LYMPHOCYTES PERCENT AUTO 15 % (21-46); MONOCYTES ABSOLUTE AUTO 0.67 K/mm3 (0.16-1.47); MONOCYTES PERCENT AUTO 8 % (4-13); Mean Corpuscular HGB 30.1 pg (26.0-34.0); Mean Corpuscular HGB Conc 32.8 g/dL (31.5-36.5); Mean Corpuscular Volume 92 fL (80-100); Mean Platelet Volume 10.2 fL (9.1-12.4); NEUTROPHILS PERCENT AUTO 74 % (41-73); Platelet Count 212 K/mm3 (150-400); RDW Coefficient Variation 12.8 % (11.7-14.2); RDW Standard Deviation 43.6 fL (35.1-46.3); Red Blood Cell Count 4.89 M/mm3 (4.30-5.90); White Blood Cell Count 8.35 K/mm3 (4.00-11.30)
[2023-05-27 10:45] LABS: Albumin, Blood 3.6 g/dL (3.4-5.0); Bilirubin, Total 0.2 mg/dL (0.1-1.0); Bun/Creatinine Ratio 21.7 (12.0-20.0); Creatinine, Blood 1.06 mg/dL (0.60-1.20); Globulin, Blood 3.7 g/dL (2.2-4.0); Potassium, Blood 4.4 mmol/L (3.5-5.5); Total Protein, Blood 7.3 g/dL (6.4-8.2)
[2023-05-27 13:24] VITALS: BP 155/70
== END 2023-05-27 13:26 | disposition home or self-care (01) ==
LOC: ER 09:53
PROVIDERS: Physician Assistant
DX: R07.89 Other chest pain (principal); Z88.8 Allergy status to other drugs, medicaments and biological substances; Z88.1 Allergy status to other antibiotic agents; Z79.899 Other long term (current) drug therapy; I10 Essential (primary) hypertension; E78.5 Hyperlipidemia, unspecified; I25.10 Atherosclerotic heart disease of native coronary artery without angina pectoris; E03.9 Hypothyroidism, unspecified; N18.30 Chronic kidney disease, stage 3 unspecified; I48.91 Unspecified atrial fibrillation; J44.9 Chronic obstructive pulmonary disease, unspecified; Z87.891 Personal history of nicotine dependence
CPT/HCPCS: 71046; 80053; 83690; 84484; 85025; 93005; 93010; 99285-25

== ENCOUNTER 2023-06-11 23:26 | Observation (INO) | payer MEDICARE, BC ==
[~2023-06-11] VITALS: Ht 177.8 cm; Wt 78.6 kg
[2023-06-12 00:07] LABS: BASOPHILS ABSOLUTE AUTO 0.06 K/mm3 (0.00-0.23); BASOPHILS PERCENT AUTO 1 % (0-2); EOSINOPHILS PERCENT AUTO 3 % (0-6); Hematocrit 42.6 % (37.0-53.0); Hemoglobin 14.1 g/dL (13.5-17.5); IMMATURE GRAN ABSOLUTE AUTO 0.06 K/mm3 (0.00-0.10); IMMATURE GRAN PERCENT AUTO 1 % (0-1); LYMPHOCYTES ABSOLUTE AUTO 1.58 K/mm3 (0.84-5.20); LYMPHOCYTES PERCENT AUTO 20 % (21-46); MONOCYTES ABSOLUTE AUTO 0.86 K/mm3 (0.16-1.47); MONOCYTES PERCENT AUTO 11 % (4-13); Mean Corpuscular HGB 29.7 pg (26.0-34.0); Mean Corpuscular HGB Conc 33.1 g/dL (31.5-36.5); Mean Corpuscular Volume 90 fL (80-100); Mean Platelet Volume 10.1 fL (9.1-12.4); NEUTROPHILS ABSOLUTE AUTO 5.03 K/mm3 (1.96-9.15); NEUTROPHILS PERCENT AUTO 65 % (41-73); Platelet Count 209 K/mm3 (150-400); RDW Coefficient Variation 12.6 % (11.7-14.2); RDW Standard Deviation 41.5 fL (35.1-46.3); Red Blood Cell Count 4.74 M/mm3 (4.30-5.90); White Blood Cell Count 7.79 K/mm3 (4.00-11.30)
[2023-06-12 00:43] LABS: Albumin, Blood 3.5 g/dL (3.4-5.0); Bilirubin, Total 0.2 mg/dL (0.1-1.0); Bun/Creatinine Ratio 20.5 (12.0-20.0); Calcium, Blood 10.2 mg/dL (8.5-10.1); Creatinine, Blood 1.12 mg/dL (0.60-1.20); Globulin, Blood 3.6 g/dL (2.2-4.0); Potassium, Blood 3.9 mmol/L (3.5-5.5); Total Protein, Blood 7.1 g/dL (6.4-8.2)
[2023-06-12 08:18] VITALS: BP 196/96
[2023-06-12 09:22] LABS: CHOL/HDL RATIO 2.5; Cholesterol 135 mg/dL (50-200); HDL Cholesterol 53 mg/dL (>39); LDL/HDL RATIO 1.3; Low Density Lipoprotein Chol 67 mg/dL (0-110); Triglycerides 76 mg/dL (30-160); Very Low Density Lipoprot Chol 15 mg/dL (6-32)
[2023-06-12] MEDS ORDERED: Norco 5-325 Ta1 EACH PO (09:24)
[2023-06-12 15:06] VITALS: BP 151/82
--- NOTE | 2023-06-12 16:22 | NUR ---
Upon receiving a referral for spiritual care, I visited the patient. He is lying in bed and alert. He shares about his medical issues, his family unit and his Yarsanism lita. He shares his concerns about his heart issues and about living with the physical pain of his other medical issues (back, knee, shoulder pain and Fibro myalgia). We discuss suffering in light of his Yarsanism lita, and explore sources of meaning and purpose. I provide theological insights, therapeutic listening and prayer. Patient responded well and showed signs of being encouraged in his lita. I will continue to remain available to patient and family.
--- NOTE | 2023-06-12 17:52 | NUR ---
SHIFT SUMMARY- PT WAS ADMITED TO THE UNIT THIS MORNING. ORIENTED TO THE ROOM. HE IS INDEPENDENT IN THE ROOM. STRESS TEST WILL BE PREFORMED TOMORROW. FAMILY WAS AT BEDSIDE THIS SHIFT. BP WAS ELEVATED THIS MORNING BUT CAME DOWN AFTER MEDS WERE GIVEN. HIS BED IS IN THE LOW POSITON AND CALL LIGHT IS WITIN REACH.
[2023-06-12 19:37] VITALS: BP 180/73
[2023-06-13 03:03] VITALS: BP 119/60
[2023-06-13 06:04] LABS: BASOPHILS ABSOLUTE AUTO 0.06 K/mm3 (0.00-0.23); BASOPHILS PERCENT AUTO 1 % (0-2); EOSINOPHILS PERCENT AUTO 3 % (0-6); Hematocrit 44.5 % (37.0-53.0); Hemoglobin 14.9 g/dL (13.5-17.5); IMMATURE GRAN ABSOLUTE AUTO 0.06 K/mm3 (0.00-0.10); IMMATURE GRAN PERCENT AUTO 1 % (0-1); LYMPHOCYTES ABSOLUTE AUTO 1.28 K/mm3 (0.84-5.20); LYMPHOCYTES PERCENT AUTO 16 % (21-46); MONOCYTES ABSOLUTE AUTO 0.91 K/mm3 (0.16-1.47); MONOCYTES PERCENT AUTO 12 % (4-13); Mean Corpuscular HGB Conc 33.5 g/dL (31.5-36.5); Mean Corpuscular Volume 90 fL (80-100); Mean Platelet Volume 10.5 fL (9.1-12.4); NEUTROPHILS ABSOLUTE AUTO 5.43 K/mm3 (1.96-9.15); NEUTROPHILS PERCENT AUTO 68 % (41-73); Platelet Count 199 K/mm3 (150-400); RDW Coefficient Variation 12.6 % (11.7-14.2); RDW Standard Deviation 41.4 fL (35.1-46.3); Red Blood Cell Count 4.97 M/mm3 (4.30-5.90); White Blood Cell Count 7.94 K/mm3 (4.00-11.30)
--- NOTE | 2023-06-13 06:37 | NUR ---
NOC SHIFT SUMMARY: VICODIN GIVEN THIS AM. PT STATES THAT CHEST PAIN IS MUCH BETTER. VITAL STABLE OVERNIGHT. IS A RETIRED SURGICAL NURSE. NUCEAR STRESS TEST ORDERED FOR TODAY.
[2023-06-13 06:51] LABS: Albumin, Blood 3.2 g/dL (3.4-5.0); Anion Gap 4 mmol/L (6-16); Blood Urea Nitrogen 21 mg/dL (8-24); Bun/Creatinine Ratio 18.3 (12.0-20.0); CO2, Blood 26 mmol/L (21-32); Calcium, Blood 9.9 mg/dL (8.5-10.1); Chloride, Blood 111 mmol/L (98-108); Creatinine, Blood 1.15 mg/dL (0.60-1.20); Glomerular Filtration Rate 68 (60-); Glucose, Blood 111 mg/dL (70-99); Phosphorus, Blood 2.7 mg/dL (2.5-4.9); Potassium, Blood 4.1 mmol/L (3.5-5.5); Sodium, Blood 141 mmol/L (136-145)
[2023-06-13 07:59] VITALS: BP 147/71
[2023-06-13 16:26] VITALS: BP 172/67
--- NOTE | 2023-06-13 17:12 | NUR ---
SHIFT SUMMARY PT AOX4, INDEPENDENT IN THE ROOM. NO STRESS TEST TODAY DUE TO LACK OF STAFF, POSSIBLY TOMORROW. PT STATED HE WOULD WAIT FOR THE POTENTIAL OF COMPLETING THE TEST TOMORROW. MEDICATED PER THE EMAR FOR BACK PAIN. NO CP OR PRESSURE THIS SHIFT. CALL LIGHT WITHIN REACH, BED IN THE LOWEST POSITION. WILL REPORT TO ONCOMING NURSE.
[2023-06-13 17:32] VITALS: BP 155/64
[2023-06-13 19:48] VITALS: BP 152/66
[2023-06-14 01:54] VITALS: BP 118/58
--- NOTE | 2023-06-14 04:02 | NUR ---
SHIFT SUMMARY PATIENT HAD NO ACUTE CHANGES. DENIES CHEST PAIN, SOB, AND N/V. AXOX 4 AND INDEPENDENT IN ROOM. ON ROOM AIR. NPO FOR STRESS TEST IN AM. PIV REMAINS INTACT. MACHINING DEPARTMENT SUPERVISOR REPORTS SB 57. VSS/AFEBRILE. COOPERATIVE WITH CARE. CALL LIGHT IN REACH. BED IN LOWEST POSITION. WILL CONTINUE TO MONITOR UNTIL DAY SHIFT NURSE ASSUMES CARE.
[2023-06-14 05:50] LABS: BASOPHILS ABSOLUTE AUTO 0.04 K/mm3 (0.00-0.23); BASOPHILS PERCENT AUTO 1 % (0-2); EOSINOPHILS ABSOLUTE AUTO 0.22 K/mm3 (0.00-0.68); EOSINOPHILS PERCENT AUTO 3 % (0-6); Hematocrit 44.4 % (37.0-53.0); Hemoglobin 14.7 g/dL (13.5-17.5); IMMATURE GRAN ABSOLUTE AUTO 0.07 K/mm3 (0.00-0.10); IMMATURE GRAN PERCENT AUTO 1 % (0-1); LYMPHOCYTES ABSOLUTE AUTO 1.35 K/mm3 (0.84-5.20); LYMPHOCYTES PERCENT AUTO 19 % (21-46); MONOCYTES ABSOLUTE AUTO 0.97 K/mm3 (0.16-1.47); MONOCYTES PERCENT AUTO 13 % (4-13); Mean Corpuscular HGB 29.7 pg (26.0-34.0); Mean Corpuscular HGB Conc 33.1 g/dL (31.5-36.5); Mean Corpuscular Volume 90 fL (80-100); Mean Platelet Volume 10.6 fL (9.1-12.4); NEUTROPHILS ABSOLUTE AUTO 4.61 K/mm3 (1.96-9.15); NEUTROPHILS PERCENT AUTO 63 % (41-73); Platelet Count 209 K/mm3 (150-400); RDW Coefficient Variation 12.7 % (11.7-14.2); RDW Standard Deviation 41.7 fL (35.1-46.3); Red Blood Cell Count 4.95 M/mm3 (4.30-5.90); White Blood Cell Count 7.26 K/mm3 (4.00-11.30)
[2023-06-14 06:27] LABS: Albumin, Blood 3.1 g/dL (3.4-5.0); Anion Gap 4 mmol/L (6-16); Blood Urea Nitrogen 20 mg/dL (8-24); Bun/Creatinine Ratio 17.9 (12.0-20.0); CO2, Blood 26 mmol/L (21-32); Calcium, Blood 9.7 mg/dL (8.5-10.1); Chloride, Blood 111 mmol/L (98-108); Creatinine, Blood 1.12 mg/dL (0.60-1.20); Glomerular Filtration Rate 70 (60-); Glucose, Blood 102 mg/dL (70-99); Phosphorus, Blood 2.6 mg/dL (2.5-4.9); Potassium, Blood 4.2 mmol/L (3.5-5.5); Sodium, Blood 141 mmol/L (136-145)
[2023-06-14 07:24] VITALS: BP 155/77
[2023-06-14 10:59] VITALS: BP 171/92
[2023-06-14 14:59] VITALS: BP 151/80
[2023-06-14] MEDS ORDERED: ACET325 PO (16:13)
--- NOTE | 2023-06-14 16:53 | NUR ---
SHIFT/DISCHARGE SUMMARY Pt remains A&O X3 this shift. VSS. Ambulating independently without distress. Tolerating diet. Voiding without difficulty. All discharge instructions reviewed with return verbal understanding. Pt declines transport chair to [facility]. Left with and all belongings.
== END 2023-06-14 18:55 | disposition home or self-care (01) ==
LOC: ER 23:26 → MEDS 23:27
PROVIDERS: Family Medicine; Student in an Organized Health Care Education/Training Program; ADMIT Internal Medicine
DX: I25.118 Atherosclerotic heart disease of native coronary artery with other forms of angina pectoris (principal); I10 Essential (primary) hypertension; E78.5 Hyperlipidemia, unspecified; I48.91 Unspecified atrial fibrillation; J44.9 Chronic obstructive pulmonary disease, unspecified; I73.9 Peripheral vascular disease, unspecified; I12.9 Hypertensive chronic kidney disease with stage 1 through stage 4 chronic kidney disease, or unspecified chronic kidney disease; N18.30 Chronic kidney disease, stage 3 unspecified; G45.1 Carotid artery syndrome (hemispheric); E03.9 Hypothyroidism, unspecified; Z95.5 Presence of coronary angioplasty implant and graft; Z87.891 Personal history of nicotine dependence
CPT/HCPCS: 36415; 71046; 78452; 80053; 80061; 80069; 83036; 83735; 84443; 84484; 85025; 85379; 93005; 93010; 93017; 93246; 94760; 96372; 99285-25; A9270; A9500; G0378; J0706; J1650; J2785

== ENCOUNTER 2023-07-03 09:50 | Day surgery (SDC) | payer MEDICARE, BC ==
[~2023-07-03] VITALS: Ht 172.7 cm; Wt 82.0 kg
[~2023-07-03 09:50] MED LIST changes: +ACET325 PO; +Norco 5-325 Ta1 EACH PO
[2023-07-03 11:34] VITALS: BP 100/67
== END 2023-07-03 11:40 | disposition home or self-care (01) ==
LOC: ORSCSDS 09:50
PROVIDERS: Internal Medicine Gastroenterology
PROC: 0DJ08ZZ Inspection of Upper Intestinal Tract, Via Natural or Artificial Opening Endoscopic (ICD-10-PCS; principal; 2023-07-03 11:00)
DX: R07.9 Chest pain, unspecified (principal); K20.90 Esophagitis, unspecified without bleeding; R14.2 Eructation; G47.33 Obstructive sleep apnea (adult) (pediatric); Z87.891 Personal history of nicotine dependence; Z79.02 Long term (current) use of antithrombotics/antiplatelets; Z79.899 Other long term (current) drug therapy
CPT/HCPCS: 88305; J2704; J7120

== ENCOUNTER 2024-08-12 06:10 | Day surgery (SDC) | payer MEDICARE, BC ==
[~2024-08-12] VITALS: Ht 172.7 cm; Wt 83.4 kg
[~2024-08-12 06:10] MED LIST changes: +Povidone-Iodine 450 DROP/30 ML Solution ONE; +Tetracaine HCl/Pf 0.5% Opth Soln 4 ml ONE
[2024-08-12] MEDS ORDERED: Triamcinolone Inj Susp 40 MG / ML 1ML Vial ONE (06:31)
[2024-08-12] MEDS ORDERED: Lidocaine HCl/Pf 1% 5 ML VIAL ONE (06:32)
[2024-08-12] MEDS ORDERED: AMLODIPINE BES2.5 MG PO (06:32)
[2024-08-12] MEDS ORDERED: JARDIANCE25 MG PO (06:34)
--- NOTE | 2024-08-12 06:48 | NUR ---
08/12/24 0648 Jennyfer Newman AT 0632 PLEDGET AT 0685
[2024-08-12] MEDS ORDERED: Midazolam HCl 1MG / ML 2ML Vial ONE (07:18)
[2024-08-12] MEDS ORDERED: FentaNYL Citrate 50 MCG/ML 2 ML Injection ONE (07:18)
[2024-08-12] MEDS ORDERED: Moxifloxacin HCL 0.5 MG/0.1 ML 0.4MLSYR LEFTEYE ONE (07:38)
[2024-08-12] MEDS ORDERED: Balanced Salt Epinephrine Irrigation Solution 500 mL IR ONE (07:38)
[2024-08-12 07:58] VITALS: BP 121/66
== END 2024-08-12 08:20 | disposition home or self-care (01) ==
LOC: ORSCSDS 06:10
PROVIDERS: Ophthalmology
PROC: 08RK3JZ Replacement of Left Lens with Synthetic Substitute, Percutaneous Approach (ICD-10-PCS; principal; 2024-08-12 07:30)
DX: E11.36 Type 2 diabetes mellitus with diabetic cataract (principal); H25.812 Combined forms of age-related cataract, left eye; I48.91 Unspecified atrial fibrillation; J44.9 Chronic obstructive pulmonary disease, unspecified; I10 Essential (primary) hypertension; E03.9 Hypothyroidism, unspecified; E78.5 Hyperlipidemia, unspecified; K21.9 Gastro-esophageal reflux disease without esophagitis; F32.A Depression, unspecified; I25.10 Atherosclerotic heart disease of native coronary artery without angina pectoris; M79.7 Fibromyalgia; Z79.02 Long term (current) use of antithrombotics/antiplatelets; Z79.84 Long term (current) use of oral hypoglycemic drugs; Z79.899 Other long term (current) drug therapy
CPT/HCPCS: 82947; J2003; J2250; J3010; J3301; V2632

== ENCOUNTER 2024-08-16 21:56 | Emergency (ER) | payer MEDICARE, BC ==
[~2024-08-16] VITALS: Ht 172.7 cm; Wt 81.7 kg
[~2024-08-16 21:56] MED LIST changes: +AMLODIPINE BES2.5 MG PO; +JARDIANCE25 MG PO; -Povidone-Iodine 450 DROP/30 ML Solution ONE; -Tetracaine HCl/Pf 0.5% Opth Soln 4 ml ONE
[2024-08-16 22:51] LABS: BASOPHILS ABSOLUTE AUTO 0.04 K/mm3 (0.00-0.23); BASOPHILS PERCENT AUTO 1 % (0-2); EOSINOPHILS ABSOLUTE AUTO 0.13 K/mm3 (0.00-0.68); EOSINOPHILS PERCENT AUTO 2 % (0-6); IMMATURE GRAN ABSOLUTE AUTO 0.07 K/mm3 (0.00-0.10); IMMATURE GRAN PERCENT AUTO 1 % (0-1); LYMPHOCYTES ABSOLUTE AUTO 1.22 K/mm3 (0.84-5.20); LYMPHOCYTES PERCENT AUTO 21 % (21-46); MONOCYTES PERCENT AUTO 12 % (4-13); Mean Corpuscular HGB 29.5 pg (26.0-34.0); Mean Corpuscular HGB Conc 32.6 g/dL (31.5-36.5); Mean Corpuscular Volume 91 fL (80-100); Mean Platelet Volume 10.2 fL (9.1-12.4); NEUTROPHILS ABSOLUTE AUTO 3.63 K/mm3 (1.96-9.15); NEUTROPHILS PERCENT AUTO 63 % (41-73); Platelet Count 180 K/mm3 (150-400); RDW Coefficient Variation 13.4 % (11.7-14.2); RDW Standard Deviation 45.4 fL (35.1-46.3); Red Blood Cell Count 5.08 M/mm3 (4.30-5.90); White Blood Cell Count 5.79 K/mm3 (4.00-11.30)
[2024-08-16 23:04] LABS: Albumin, Blood 3.5 g/dL (3.4-5.0); Albumin/Globulin Ratio 0.9 (0.8-1.8); Bilirubin, Total 0.3 mg/dL (0.1-1.0); Calcium, Blood 10.6 mg/dL (8.5-10.1); Creatinine, Blood 1.19 mg/dL (0.60-1.20); Globulin, Blood 3.8 g/dL (2.2-4.0); Total Protein, Blood 7.3 g/dL (6.4-8.2)
[2024-08-16] MEDS ORDERED: HydrALAZINE HCl 20 MG / ML 1ML Vial IV ONE (23:20)
[2024-08-17 00:19] LABS: Influenza A, PCR NEGATIVE (NEGATIVE); Influenza B, PCR NEGATIVE (NEGATIVE); Resp Syncytial Virus, PCR NEGATIVE (NEGATIVE); SARS-Cov-2 (COVID-19) PCR, MMC NEGATIVE (NEGATIVE)
[2024-08-17 00:45] VITALS: BP 137/76
[2024-08-17] MEDS ORDERED: MICROZIDE12.5 MG PO (00:50)
== END 2024-08-17 01:15 | disposition home or self-care (01) ==
LOC: ER 21:56
PROVIDERS: Emergency Medicine
DX: I16.0 Hypertensive urgency (principal); I12.9 Hypertensive chronic kidney disease with stage 1 through stage 4 chronic kidney disease, or unspecified chronic kidney disease; N18.30 Chronic kidney disease, stage 3 unspecified; I48.91 Unspecified atrial fibrillation; J44.9 Chronic obstructive pulmonary disease, unspecified; E78.5 Hyperlipidemia, unspecified; Z87.891 Personal history of nicotine dependence; Z79.02 Long term (current) use of antithrombotics/antiplatelets; Z79.899 Other long term (current) drug therapy; Z88.8 Allergy status to other drugs, medicaments and biological substances; Z88.1 Allergy status to other antibiotic agents
CPT/HCPCS: 0241U; 71045; 80053; 84484; 85025; 93005; 93010; 96374; 99285-25; J0360

== ENCOUNTER 2025-05-18 21:52 | Observation (INO) | payer MEDICARE, BC ==
[~2025-05-18] VITALS: Ht 172.7 cm; Wt 74.4 kg
[~2025-05-18 21:52] MED LIST changes: +ATOR20 PO; -ATOR40TA PO; +METO25ER PO; -METO50ER PO; +MICROZIDE12.5 MG PO; -PANT20 PO; +PANT40 PO; +ZYRTEC10 M2 PO
[2025-05-18 23:27] LABS: BASOPHILS ABSOLUTE AUTO 0.03 K/mm3 (0.00-0.23); BASOPHILS PERCENT AUTO 1 % (0-2); EOSINOPHILS ABSOLUTE AUTO 0.01 K/mm3 (0.00-0.68); EOSINOPHILS PERCENT AUTO 0 % (0-6); Hematocrit 37.3 % (37.0-53.0); Hemoglobin 12.4 g/dL (13.5-17.5); IMMATURE GRAN ABSOLUTE AUTO 0.03 K/mm3 (0.00-0.10); IMMATURE GRAN PERCENT AUTO 1 % (0-1); LYMPHOCYTES ABSOLUTE AUTO 0.68 K/mm3 (0.84-5.20); LYMPHOCYTES PERCENT AUTO 16 % (21-46); MONOCYTES ABSOLUTE AUTO 1.00 K/mm3 (0.16-1.47); MONOCYTES PERCENT AUTO 24 % (4-13); Mean Corpuscular HGB Conc 33.2 g/dL (31.5-36.5); Mean Corpuscular Volume 94 fL (80-100); NEUTROPHILS ABSOLUTE AUTO 2.41 K/mm3 (1.96-9.15); NEUTROPHILS PERCENT AUTO 58 % (41-73); NRBC ABSOLUTE 0.00 K/mm3 (0.00-0.02); NRBC Auto 0.0 /100 WBC (0.0-0.2); Platelet Count 124 K/mm3 (150-400); RDW Coefficient Variation 18.1 % (11.7-14.2); RDW Standard Deviation 62.4 fL (35.1-46.3)
[2025-05-18 23:38] LABS: Alanine Aminotransfer (ALT/SGP 25.0 U/L (12-78); Albumin, Blood 3.0 g/dL (3.4-5.0); Albumin/Globulin Ratio 0.8 (0.8-1.8); Anion Gap 9.0 mmol/L (3-11); Aspartate Aminotrans (AST/SGOT 28.0 U/L (12-37); Bilirubin, Total 0.4 mg/dL (0.1-1.0); Blood Urea Nitrogen 18.0 mg/dL (8-24); CO2, Blood 24.0 mmol/L (21-32); Calcium, Blood 10.0 mg/dL (8.5-10.1); Chloride, Blood 108.0 mmol/L (98-108); Creatinine, Blood 1.04 mg/dL (0.60-1.20); Globulin, Blood 4.0 g/dL (2.2-4.0); Glucose, Blood 138.0 mg/dL (70-99); Potassium, Blood 3.9 mmol/L (3.5-5.5); Sodium, Blood 137.0 mmol/L (136-145); Total Protein, Blood 7.0 g/dL (6.4-8.2)
[2025-05-19] MEDS ORDERED: cefTAZidime 2,000 MG in NS 100 ML IV ONE (00:10)
[2025-05-19 01:38] LABS: Influenza A, PCR NEGATIVE (NEGATIVE); Influenza B, PCR NEGATIVE (NEGATIVE); Resp Syncytial Virus, PCR NEGATIVE (NEGATIVE); SARS-Cov-2 (COVID-19) PCR, MMC NEGATIVE (NEGATIVE)
[2025-05-19 01:50] LABS: Source, Urine Clean Catch
[2025-05-19 02:04] LABS: Bilirubin, Urine Neg (Neg); Glucose Qualitative, Urine 4+ (Neg); Ketones, Urine Neg (Neg); Leukocyte Esterase, Urine Neg (Neg); Protein, Urine Neg (Neg); Specific Gravity, Urine 1.010 (1.003-1.022); Urobilinogen, Urine NORM (Normal)
[2025-05-19] MEDS ORDERED: Piperacillin/Tazobactam Sod 4.5 GM in NS 100 ML IV SCH (02:06)
[2025-05-19] MEDS ORDERED: NITR.4SL SL (02:06)
[2025-05-19 02:48] LABS: Color, Urine Pale Yellow (P-Yellow)
[2025-05-19] MEDS ORDERED: ONDA8 PO (03:11)
[2025-05-19] MEDS ORDERED: HYDROcodone 5-APAP 325 TAB PO PRN (03:25)
[2025-05-19 03:37] VITALS: BP 125/97
--- NOTE | 2025-05-19 04:52 | NUR ---
SHIFT SUMMARY; PATIENT AFEBRILE ON ADMIT. MEDICATED FOR BACK PAIN. PLEASANT AND TRYING TO GET SOME SLEEP.
[2025-05-19 05:08] LABS: BASOPHILS ABSOLUTE AUTO 0.02 K/mm3 (0.00-0.23); BASOPHILS PERCENT AUTO 1 % (0-2); EOSINOPHILS ABSOLUTE AUTO 0.01 K/mm3 (0.00-0.68); EOSINOPHILS PERCENT AUTO 0 % (0-6); Hematocrit 35.4 % (37.0-53.0); Hemoglobin 11.3 g/dL (13.5-17.5); IMMATURE GRAN ABSOLUTE AUTO 0.01 K/mm3 (0.00-0.10); IMMATURE GRAN PERCENT AUTO 0 % (0-1); LYMPHOCYTES ABSOLUTE AUTO 0.77 K/mm3 (0.84-5.20); LYMPHOCYTES PERCENT AUTO 26 % (21-46); MONOCYTES ABSOLUTE AUTO 0.81 K/mm3 (0.16-1.47); MONOCYTES PERCENT AUTO 28 % (4-13); Mean Corpuscular HGB Conc 31.9 g/dL (31.5-36.5); Mean Corpuscular Volume 96 fL (80-100); NEUTROPHILS ABSOLUTE AUTO 1.30 K/mm3 (1.96-9.15); NEUTROPHILS PERCENT AUTO 45 % (41-73); NRBC ABSOLUTE 0.00 K/mm3 (0.00-0.02); NRBC Auto 0.0 /100 WBC (0.0-0.2); Platelet Count 87 K/mm3 (150-400); RDW Coefficient Variation 18.0 % (11.7-14.2); RDW Standard Deviation 63.3 fL (35.1-46.3)
[2025-05-19 05:42] LABS: Alanine Aminotransfer (ALT/SGP 21.0 U/L (12-78); Albumin, Blood 2.7 g/dL (3.4-5.0); Albumin/Globulin Ratio 0.8 (0.8-1.8); Anion Gap 7.0 mmol/L (3-11); Aspartate Aminotrans (AST/SGOT 26.0 U/L (12-37); Bilirubin, Total 0.4 mg/dL (0.1-1.0); Blood Urea Nitrogen 17.0 mg/dL (8-24); CO2, Blood 27.0 mmol/L (21-32); Calcium, Blood 9.4 mg/dL (8.5-10.1); Chloride, Blood 110.0 mmol/L (98-108); Creatinine, Blood 1.02 mg/dL (0.60-1.20); Globulin, Blood 3.4 g/dL (2.2-4.0); Glucose, Blood 127.0 mg/dL (70-99); Potassium, Blood 3.6 mmol/L (3.5-5.5); Sodium, Blood 140.0 mmol/L (136-145); Total Protein, Blood 6.1 g/dL (6.4-8.2)
[2025-05-19] MEDS ORDERED: NS 1,000 ML IV ONE (06:30)
[2025-05-19 08:26] VITALS: BP 147/71
[2025-05-19] MEDS ORDERED: Enoxaparin 40 MG/0.4 ML SYR SC SCH (09:00)
[2025-05-19] MEDS ORDERED: Levothyroxine Sodium 0.175 MG TAB PO SCH (09:00)
[2025-05-19] MEDS ORDERED: NS 1,000 ML IV SCH (12:25)
[2025-05-19] MEDS ORDERED: Isosorbide Mononitrate 30 MG TABCR PO SCH (13:00)
[2025-05-19] MEDS ORDERED: AZIT500 PO (15:04)
[2025-05-19 15:52] VITALS: BP 153/84
--- NOTE | 2025-05-19 16:44 | NUR ---
SHIFT SUMMARY AND DISCHARGE PATIENT ALERT AND INDEPENDENT IN THE ROOM. PATIENT AFEBRILE AND EAGER TO GO HOME. PATIENT HAD FEVER POST CHEMO AT HOME. DISCHARGE INSTRUCTIONS REVIEWED WITH PATIENT IV AND CHRIS BOYD. BELONGINGS SENT HOME WITH PATIENT. ROOM CHECK DONE BEFORE DEPARTURE.
== END 2025-05-19 16:35 | disposition home or self-care (01) ==
LOC: ER 21:52 → ERHOLD 21:53 → MEDS 21:53
PROVIDERS: Emergency Medicine; Student in an Organized Health Care Education/Training Program; ADMIT Internal Medicine
DX: R50.9 Fever, unspecified (principal); D84.81 Immunodeficiency due to conditions classified elsewhere; C25.9 Malignant neoplasm of pancreas, unspecified; I10 Essential (primary) hypertension; I73.9 Peripheral vascular disease, unspecified; I95.9 Hypotension, unspecified; F51.04 Psychophysiologic insomnia; M79.7 Fibromyalgia; I25.10 Atherosclerotic heart disease of native coronary artery without angina pectoris; K21.9 Gastro-esophageal reflux disease without esophagitis; E03.9 Hypothyroidism, unspecified; Z88.8 Allergy status to other drugs, medicaments and biological substances; Z88.5 Allergy status to narcotic agent; Z79.890 Hormone replacement therapy; Z79.899 Other long term (current) drug therapy
CPT/HCPCS: 36415; 71045; 80053; 81003; 83605; 83690; 85025; 87040; 87637; 93005; 93010; 96365; 96366; 96367; 96372; 96376; 99285-25; A9270; G0378; J0713; J1650; J2543; J7030; J7120